=== PATIENT | female | born 1985 | race African-American/Black ===

== ENCOUNTER 2017-09-24 10:57 | Emergency (ER) | payer SELFPAY ==
[~2017-09-24] VITALS: Ht 171.4 cm; Wt 133.2 kg
[2017-09-24 11:03] VITALS: BP 138/85
[2017-09-24] MEDS ORDERED: ONDA4TAB10 PO (11:42)
== END 2017-09-24 13:38 | disposition home or self-care (01) ==
LOC: ED 13:28 → EDBD 13:28 → ED 13:38
DX: O20.0 Threatened abortion (principal); Z3A.12 12 weeks gestation of pregnancy
CPT/HCPCS: 76801; 99284

== ENCOUNTER 2018-11-26 09:30 | Emergency (ER) | payer SELFPAY ==
[~2018-11-26] VITALS: Ht 172.7 cm; Wt 134.0 kg
[~2018-11-26 09:30] MED LIST: ONDA4TAB10 PO
[2018-11-26 09:37] VITALS: BP 156/82
--- NOTE | 2018-11-26 09:57 | NUR ---
LEFT EAR PAIN
== END 2018-11-26 10:58 | disposition home or self-care (01) ==
LOC: ED 10:16
DX: H69.92 Unspecified Eustachian tube disorder, left ear (principal); K01.1 Impacted teeth; J45.909 Unspecified asthma, uncomplicated
CPT/HCPCS: 99283

== ENCOUNTER 2020-04-06 20:02 | Emergency (ER) | payer MEDICAID ==
[~2020-04-06] VITALS: Ht 170.2 cm; Wt 123.7 kg
[2020-04-06 20:03] VITALS: BP 140/99
--- NOTE | 2020-04-06 21:02 | NUR ---
Patient/Caregiver given discharge instructions and they have confirmed that they understand the instructions. Patient ambulatory with steady gait.
== END 2020-04-06 21:04 | disposition home or self-care (01) ==
LOC: ED 20:51
DX: J45.41 Moderate persistent asthma with (acute) exacerbation (principal); Z20.828 Contact with and (suspected) exposure to other viral communicable diseases; R51 Headache; J02.8 Acute pharyngitis due to other specified organisms; B97.89 Other viral agents as the cause of diseases classified elsewhere; Z86.39 Personal history of other endocrine, nutritional and metabolic disease; Z87.891 Personal history of nicotine dependence
CPT/HCPCS: 36415; 87635; 93005; 99284